=== PATIENT | male | born 1975 | race Caucasian/White ===

== ENCOUNTER → 2020-10-29 | Outpatient (CLI) | payer OTHER ==
--- NOTE | 2020-10-29 16:24 | XR ---
EXAMINATION TYPE: XR lumbar spine 2 or 3V DATE OF EXAM: 10/29/2020 CLINICAL HISTORY: Low back pain for months. TECHNIQUE: Frontal and lateral images of the lumbar spine are obtained. COMPARISON: None FINDINGS: There are 5 lumbar type vertebral bodies identified. The lumbar spine shows convex scolio tic curvature centered at L2-L3 level without evidence of acute fracture or dislocation. Vertebral alberto dy heights and disk space heights are within normal limits. The overlying soft tissue appears unremar kable. IMPRESSION: As above.
== END | disposition home or self-care (01) ==
LOC: RADXRMAIN 15:48
PROVIDERS: ATTEND Family Medicine
DX: M41.86 Other forms of scoliosis, lumbar region (principal)
CPT/HCPCS: 72100